=== PATIENT | female | born 1960 | race African-American/Black ===

== ENCOUNTER 2016-10-19 23:00 | Emergency (ER) | payer OTHER ==
[~2016-10-19] VITALS: Ht 157.5 cm; Wt 48.5 kg
[~2016-10-19 23:00] MED LIST: ALBU8.5H3 INH; BENZ1TAB7; CLON-379 PO; HYDR-906 PO; LORA-408; ONDA4TAB14 PO; OXYC-279 PO; PEG1POWD PO; PRED20TA PO; RISP3TAB25; TRAZ150T65 PO
[2016-10-19 23:03] VITALS: Ht 157.5 cm; Wt 48.5 kg
--- NOTE | 2016-10-19 23:54 | ERD ---
ER Documentation Chief Complaint Date/Time DATE: 10/19/16 TIME: 23:52 Chief Complaint left foot pain, hit foot against the chair 3 wks ago HPI 55 year-old female presents here in emergency department for complaints of left foot pain after hitting it against a chair 3 weeks ago, patient continued to walk on it for the last 3 weeks, continues to have the pain and swelling, throbbing pain, 6/10 scale, is worse upon walking and touching the area. Patient did not take any medications up and symptoms. Patient denies any numbness or tingling. Patient denies any deformity. Patient denies any fever or chills. ROS All systems reviewed and are negative except as per history of present illness. Medications Home Meds Active Scripts Oxycodone HCl/Acetaminophen (Percocet 5-325 mg Tablet) 1 Each Tablet, 1 EACH PO TID for PAIN LEVEL 6-10, #12 TAB Prov:CORTEZ DELGADILLO MD 03/07/16 Peg 3350/Na Sulf,Bicarb,Cl/KCl (Golytely Packet) 1 Each Powd.pack, 1 EACH PO DAILY for CONSTIPATION, #1 Prov:CORTEZ DELGADILLO MD 03/07/16 Ondansetron (Ondansetron Odt) 4 Mg Tab.rapdis, 4 MG PO TID Y for NAUSEA AND/OR VOMITING, #15 TAB Prov:CORTEZ DELGADILLO MD 03/07/16 Hydrocodone/Acetaminophen ([place] 5-325 Tablet) 1 Each Tablet, 1 TAB PO Q6H Y for PAIN, #12 TAB Prov:SAGAR AMAYA PA-C 02/27/16 Prednisone* (Prednisone*) 20 Mg Tab, 40 MG PO DAILY for 4 Days, TAB Prov:SAGAR AMAYA PA-C 02/27/16 Albuterol Sulfate* (Proair HFA*) 8.5 Gm Hfa.aer.ad, 2 PUFF INH Q4, #1 INHALER Prov:SAGAR AMAYA PA-C 02/27/16 Clonidine Hcl* (Clonidine Hcl*) 0.1 Mg Tab, 0.1 MG PO Q8, #3 TAB Prov:DOUG WATSON DO 11/29/15 Reported Medications Benztropine Mesylate* (Cogentin*) 1 Mg Tab, DAILY 08/17/11 Trazodone Hcl* (Trazodone Hcl*) 150 Mg Tablet, PO QHS 08/17/11 Lorazepam (Ativan) 1 Mg Tablet, BID 08/17/11 Risperidone* (Risperdal*) 3 Mg Tablet, 2x daily 08/17/11 Allergies Allergies: Coded Allergies: No Known Allergy (Unverified , 03/06/16) PMhx/Soc History of Surgery: Yes (hysterectomy) Anesthesia Reaction: No Hx Neurological Disorder: No Hx Respiratory Disorders: No Hx Cardiac Disorders: No Hx Psychiatric Problems: No Hx Miscellaneous Medical Probl: Yes (COLITIS; urethral diverticum) Hx Alcohol Use: Yes (SOCIAL) Hx Substance Use: No Hx Tobacco Use: Yes (1 pack a week) FmHx Family History: No coronary disease, No diabetes, No other Physical Exam Vitals Vital Signs Date Time Temp Pulse Resp B/P Pulse Ox O2 Delivery O2 Flow Rate FiO2 10/19/16 23:03 97.8 96 20 136/91 100 Physical Exam GENERAL: The patient is well developed and appropriate for usual state of health, in no apparent distress. CHEST: Clear to auscultation bilaterally. There are no rales, wheezes or rhonchi. HEART: Regular rate and rhythm. No murmurs, clicks, rubs or gallops. No S3 or S4. ABDOMEN: Soft, nontender and nondistended. Good bowel sounds. No rebound or guarding. No gross peritonitis. No gross organomegaly or masses. No Choudhury sign or McBurney point tenderness. BACK: No midline or flank tenderness. EXTREMITIES: Tenderness on palpation on the dorsal aspect of the left foot. Mild swelling noted. Able to do full range of motion of the toes of the left foot and left ankle without any section. Equal pulses bilaterally. Full range of motion of other joints of the body. Grossly neurovascularly intact. NEURO: Alert and oriented. Cranial nerves 2-12 intact. Motor strength in all 4 extremities with 5/5 strength. Sensation grossly intact. Normal speech and gait. SKIN: There is no apparent rash or petechia. The skin is warm and dry. HEMATOLOGIC AND LYMPHATIC: There is no evidence of excessive bruising or lymphedema. No gross cervical, axillary, or inguinal lymphadenopathy. Results 24 hrs Current Medications Medications (Trade) Dose Ordered Sig/Isabel Route PRN Reason Start Time Stop Time Status Last Admin Dose Admin Tramadol HCl (Ultram) 50 mg ONCE ONCE PO 10/20/16 00:00 10/20/16 00:01 DC 10/20/16 00:10 Patient was given medication for pain here in emergency department, after treatment, patient verbalized feeling much better. Patient's pain is improved. PROCEDURE: X-ray left foot CLINICAL INDICATION: Left foot pain TECHNIQUE: 3 views left foot COMPARISON: None FINDINGS: Demineralization limits evaluation of fine osseous detail. Nondisplaced fracture of the distal metaphysis of the left fifth metatarsal. Otherwise, no acute fracture or dislocation. Soft tissues unremarkable. IMPRESSION: Nondisplaced fracture of the distal metaphysis of the left fifth metatarsal. RPTAT: [facility] Physician Misael Date Time Electronically viewed and signed by Physician Misael on 10/20/2016 00:47 RS/ CC: ROSIBEL CHRISTY NP After receiving patients xray report, orthopedic shoe was applied on the patients left foot. After application of the splint, patient has intact sensation and circulation on distal area of the affected joint. Patient does not complain of numbness or tingling after application of the splint. Patient tolerated procedure well. Crutches was given to use afterwards. Procedures/MDM Medical Decision Making: Patient's pain is most likely consistent with fracture of the fifth distal metatarsal. There is no suspicion for neurovascular compromise. Patient has intact sensation and circulation of the affected extremity. There is low suspicion for septic arthritis. Patient does not have any fever. Radiology exams of the affected area does not show any dislocation. Disposition: Home. Patient is given prescription for Tylenol for mild to moderate pain, tramadol for severe pain. Patient was advised to elevate the affected area and apply ice on affected area. Patient was advised that if symptoms are worse, numbness, tingling, high fever, unable to move joint, worsening symptoms, to return to emergency department immediately. Otherwise, patient is advised to follow up with the primary care doctor in 5-7 days for reevaluation of symptoms. Advised to see orthopedic doctor for further evaluation of the fracture, is orthopedic shoe and crutches as prescribed. Departure Diagnosis: Primary Impression: Metatarsal bone fracture Encounter type: initial encounter Metatarsal bone: fifth Fracture type: closed Fracture alignment: nondisplaced Laterality: left Qualified Code: S92.355A - Closed nondisplaced fracture of fifth metatarsal bone of left foot, initial encounter Condition: Stable Patient Instructions: Fracture, Foot Additional Instructions: . Patient is given prescription for Tylenol for mild to moderate pain, tramadol for severe pain. Patient was advised to elevate the affected area and apply ice on affected area. Patient was advised that if symptoms are worse, numbness, tingling, high fever, unable to move joint, worsening symptoms, to return to emergency department immediately. Otherwise, patient is advised to follow up with the primary care doctor in 5-7 days for reevaluation of symptoms. Advised to see orthopedic doctor for further evaluation of the fracture, is orthopedic shoe and crutches as prescribed. ROSIBEL CHRISTY NP Oct 19, 2016 23:54
[2016-10-20] MEDS ORDERED: traMADol 50 MG TAB PO ONE
--- NOTE | 2016-10-20 00:47 | RADRPT ---
PROCEDURE: X-ray left foot CLINICAL INDICATION: Left foot pain TECHNIQUE: 3 views left foot COMPARISON: None FINDINGS: Demineralization limits evaluation of fine osseous detail. Nondisplaced fracture of the distal meta physis of the left fifth metatarsal. Otherwise, no acute fracture or dislocation. Soft tissues unr emarkable. IMPRESSION: Nondisplaced fracture of the distal metaphysis of the left fifth metatarsal. RPTAT: [facility] Physician Misael Date Time Electronically viewed and signed by Lesley Mancera Physician on 10/20/2016 00:47 RS/
[2016-10-20] MEDS ORDERED: ACET500C5 PO (01:13)
[2016-10-20] MEDS ORDERED: TRAM50TA2 PO (01:13)
== END 2016-10-20 01:27 | disposition home or self-care (01) ==
LOC: FTE 23:00
DX: S92.355A Nondisplaced fracture of fifth metatarsal bone, left foot, initial encounter for closed fracture (principal); W22.8XXA Striking against or struck by other objects, initial encounter; Y92.9 Unspecified place or not applicable; Z87.891 Personal history of nicotine dependence
CPT/HCPCS: 73630; Z7502; Z7610

== ENCOUNTER 2016-12-15 05:19 | Emergency (ER) | payer OTHER ==
[~2016-12-15] VITALS: Wt 46.0 kg
[~2016-12-15 05:19] MED LIST changes: +ACET500C5 PO; +TRAM50TA2 PO
[2016-12-15 05:25] VITALS: Wt 46.0 kg
[2016-12-15] MEDS ORDERED: ONDANSETRON (ODT) 4 MG TAB ODT STA (06:31)
[2016-12-15] MEDS ORDERED: KETOROLAC 30 MG INJ IM STA (06:31)
[2016-12-15] MEDS ORDERED: NICARDipine HCL 30 MG CAPSULE PO ONE (07:00)
[2016-12-15] MEDS ORDERED: RANI300T PO (07:17)
[2016-12-15] MEDS ORDERED: OXYC30TA64 PO (07:18)
[2016-12-15] MEDS ORDERED: ONDANSETRON 4 MG INJ IM STA (07:26)
[2016-12-15] MEDS ORDERED: ONDA4TAB14 PO (07:27)
--- NOTE | 2016-12-15 07:32 | ERD ---
ER Documentation Chief Complaint Date/Time DATE: 12/15/16 TIME: 07:31 Chief Complaint Vomiting X2 days with mid back pain since last night and HTN HPI Patient is a 56-year-old female with ulcer and chronic headaches who presents with abdominal pain, vomiting, back pain, and headache. She says "I have been sick all week with a cold. She said the abdominal pain and vomiting started on Monday. She was trying pubg-unm-lterbam medication such as Aleve. She said that her blood pressure is high. She also says that she has diarrhea. She takes ranitidine for her ulcer. She says that she takes daily oxycodone for headaches that are prescribed by her doctor and that she ran out of oxycodone 1 week ago. Upon review of old medical records this is the patient's 14th visit to the ER since 2005. ROS All systems reviewed and are negative except as per history of present illness. Medications Home Meds Active Scripts Ondansetron (Ondansetron Odt) 4 Mg Tab.rapdis, 4 MG PO Q6H Y for NAUSEA AND/OR VOMITING, #30 TAB Prov:LAURA AVILA MD 12/15/16 Reported Medications Oxycodone Hcl* (Oxycontin*) 30 Mg Tab.sr.12h, 30 MG PO TID Y for PAIN, TAB 12/15/16 Ranitidine Hcl* (Ranitidine Hcl*) 300 Mg Tablet, 300 MG PO HS, #30 TAB 12/15/16 Discontinued Reported Medications Benztropine Mesylate* (Cogentin*) 1 Mg Tab, DAILY 08/17/11 Trazodone Hcl* (Trazodone Hcl*) 150 Mg Tablet, PO QHS 08/17/11 Lorazepam (Ativan) 1 Mg Tablet, BID 08/17/11 Risperidone* (Risperdal*) 3 Mg Tablet, 2x daily 08/17/11 Discontinued Scripts Tramadol HCl (Tramadol HCl) 50 Mg Tablet, 50 MG PO Q6 Y for SEVERE PAIN LEVEL 7- 10, #20 TAB Prov:ROSIBEL CHRISTY NP 10/20/16 Acetaminophen* (Tylophen*) 500 Mg Capsule, 1 CAP PO Q6H Y for PAIN AND OR ELEVATED TEMP, #20 CAP Prov:ROSIBEL CHRISTY NP 10/20/16 Oxycodone HCl/Acetaminophen (Percocet 5-325 mg Tablet) 1 Each Tablet, 1 EACH PO TID for PAIN LEVEL 6-10, #12 TAB Prov:CORTEZ DELGADILLO MD 03/07/16 Peg 3350/Na Sulf,Bicarb,Cl/KCl (Golytely Packet) 1 Each Powd.pack, 1 EACH PO DAILY for CONSTIPATION, #1 Prov:CORTEZ DELGADILLO MD 03/07/16 Ondansetron (Ondansetron Odt) 4 Mg Tab.rapdis, 4 MG PO TID Y for NAUSEA AND/OR VOMITING, #15 TAB Prov:CORTEZ DELGADILLO MD 03/07/16 Hydrocodone/Acetaminophen ([place] 5-325 Tablet) 1 Each Tablet, 1 TAB PO Q6H Y for PAIN, #12 TAB Prov:SAGAR AMAYA PA-C 02/27/16 Prednisone* (Prednisone*) 20 Mg Tab, 40 MG PO DAILY for 4 Days, TAB Prov:SAGAR AMAYA PA-C 02/27/16 Albuterol Sulfate* (Proair HFA*) 8.5 Gm Hfa.aer.ad, 2 PUFF INH Q4, #1 INHALER Prov:SAGAR AMAYA PA-C 02/27/16 Clonidine Hcl* (Clonidine Hcl*) 0.1 Mg Tab, 0.1 MG PO Q8, #3 TAB Prov:DOUG WATSON DO 11/29/15 Allergies Allergies: Coded Allergies: No Known Allergy (Unverified , 12/15/16) PMhx/Soc History of Surgery: Yes (hysterectomy) Anesthesia Reaction: No Hx Neurological Disorder: No Hx Respiratory Disorders: No Hx Cardiac Disorders: Yes (HTN) Hx Psychiatric Problems: No Hx Miscellaneous Medical Probl: Yes (COLITIS; urethral diverticum, ULCER) Hx Alcohol Use: Yes (SOCIAL) Hx Substance Use: Yes (SMOKES CRACK) Hx Tobacco Use: Yes (1 pack a week) Smoking Status: Current every day smoker FmHx Family History: diabetes Physical Exam Vitals Vital Signs Date Time Temp Pulse Resp B/P Pulse Ox O2 Delivery O2 Flow Rate FiO2 12/15/16 06:24 82 20 205/125 99 Room Air 12/15/16 05:25 100.2 80 20 196/118 99 Physical Exam Const: Moderate distress secondary to pain Head: Atraumatic Eyes: Normal Conjunctiva ENT: Normal External Ears, Nose and Mouth. Neck: Full range of motion..~ No meningismus. Resp: Clear to auscultation bilaterally Cardio: Regular rate and rhythm, no murmurs Abd: Soft, non tender, non distended. Patient has no focal pain on palpation of all 4 quadrants Skin: No petechiae or rashes Back: No midline or flank tenderness Ext: No cyanosis, or edema Neur: Awake and alert, cranial nerves II through XII are intact, no slurred speech Psych: Depressed affect Results 24 hrs Current Medications Medications (Trade) Dose Ordered Sig/Isabel Route PRN Reason Start Time Stop Time Status Last Admin Dose Admin Ketorolac Tromethamine (Toradol) 30 mg ONCE STAT IM 12/15/16 06:31 12/15/16 06:33 DC 12/15/16 06:39 Ondansetron HCl (Zofran Odt) 4 mg ONCE STAT ODT 12/15/16 06:31 12/15/16 06:33 DC 12/15/16 06:38 Nicardipine HCl (Cardene) 30 mg ONCE ONCE PO 12/15/16 07:00 12/15/16 07:01 DC 12/15/16 07:01 Ondansetron HCl (Zofran Inj) 4 mg ONCE STAT IM 12/15/16 07:26 12/15/16 07:27 DC Procedures/MDM Smoking Cessation Therapy: Pt. was lectured for greater than 3 minutes on the health risks of continued smoking and the benefits of cessation. Patient is a 56-year-old female with ulcer who presents with multiple complaints. She has abdominal pain, vomiting, diarrhea, back pain, and headache. I believe she may be having narcotic withdrawal as she takes oxycodone and has been out of this for 1 week. She was given [place], Zofran, and Cardene for her elevated blood pressure. At this point I doubt serious etiology of her symptoms such as appendicitis, cholecystitis, pancreatitis, or bowel obstruction. She is requesting IV fluids but she is not tachycardic and I do not believe she requires IV resuscitation at this time. I believe outpatient management is appropriate. She did have a temperature of 100.2 which would go along with a viral illness as well. She can take Zofran as needed for nausea or vomiting. She can use ibuprofen alternating with Tylenol for pain or fever. I do not want to give her any narcotic prescriptions as I do believe there may be an element of drug-seeking behavior. She will need to get any further oxycodone from her primary doctor who prescribes it to her. Departure Diagnosis: Primary Impression: Vomiting Vomiting type: unspecified Vomiting Intractability: non-intractable Nausea presence: with nausea Qualified Code: R11.2 - Non-intractable vomiting with nausea, unspecified vomiting type Additional Impressions: Narcotic withdrawal Abdominal pain Abdominal location: generalized Qualified Code: R10.84 - Generalized abdominal pain Hypertension Hypertension type: essential hypertension Qualified Code: I10 - Essential hypertension Condition: Fair Patient Instructions: Abdominal Pain, High Blood Pressure (Hypertension), Vomiting (6Y-Adult) Additional Instructions: Call your primary care doctor TOMORROW for an appointment during the next 1-2 days.See the doctor sooner or return here if your condition worsens before your appointment time. LAURA AVILA MD Dec 15, 2016 07:32
[2016-12-15 07:42] VITALS: BP 184/108; PULSE 85; RESP 20
== END 2016-12-15 08:09 | disposition home or self-care (01) ==
LOC: E/R 05:19
DX: R11.2 Nausea with vomiting, unspecified (principal); R40.2252 Coma scale, best verbal response, oriented, at arrival to emergency department; F11.23 Opioid dependence with withdrawal; R10.84 Generalized abdominal pain; I10 Essential (primary) hypertension; F17.210 Nicotine dependence, cigarettes, uncomplicated; R40.2142 Coma scale, eyes open, spontaneous, at arrival to emergency department; R40.2362 Coma scale, best motor response, obeys commands, at arrival to emergency department
CPT/HCPCS: 90472; J1885; J2405; Z7502; Z7610